=== PATIENT | male | born 1995 | race Caucasian/White ===

== ENCOUNTER 2017-11-30 22:07 | Emergency (ER) | payer OTHER ==
[~2017-11-30] VITALS: Ht 172.7 cm; Wt 104.5 kg
[2017-11-30 22:18] VITALS: BP 143/81; PULSE 95; RESP 18; TEMP 98.7; O2SAT 100
== END 2017-11-30 23:50 | disposition left against medical advice (07) ==
LOC: NED 22:07
DX: S09.90XA Unspecified injury of head, initial encounter (principal); X58.XXXA Exposure to other specified factors, initial encounter
CPT/HCPCS: 99281